=== PATIENT | male | born 1970 | race Caucasian/White ===

== ENCOUNTER 2021-03-27 18:27 | Emergency (ER) | payer OTHER ==
[~2021-03-27] VITALS: Ht 175.3 cm; Wt 72.6 kg
[2021-03-27] MEDS ORDERED: ALPR1TAB7 PO (18:49)
[2021-03-27] MEDS ORDERED: QUET100T PO (18:49)
--- NOTE | 2021-03-27 18:51 | NUR ---
Dr Le at the bedside for MSE.
[2021-03-27 19:06] VITALS: BP 129/80
--- NOTE | 2021-03-27 19:06 | NUR ---
Patient discharged to home in stable condition. Written and verbal after care instructions given. Patient verbalizes understanding of instructions. Stressed follow up or return to ER for worsening s/s. Patient ambulates with steady gait, V/S stable, and left with all personal belongings.
== END 2021-03-27 19:06 | disposition home or self-care (01) ==
LOC: ER 18:30
DX: G47.00 Insomnia, unspecified (principal); F41.9 Anxiety disorder, unspecified; F32.9 Major depressive disorder, single episode, unspecified; Z76.0 Encounter for issue of repeat prescription; Z59.0 Homelessness; R63.5 Abnormal weight gain; Z68.23 Body mass index [BMI] 23.0-23.9, adult
CPT/HCPCS: A4663

== ENCOUNTER 2022-04-22 14:05 | Inpatient (IN) | payer OTHER ==
[~2022-04-22] VITALS: Ht 170.2 cm; Wt 80.7 kg
[~2022-04-22 14:05] MED LIST: ALPR1TAB7 PO; QUET100T PO
[2022-04-22 14:28] LABS: HEMATOCRIT 38.9 % (36.7-47.1); MEAN CORPUSCULAR HEMOGLOBIN 26.4 uug (23.8-33.4); MEAN CORPUSCULAR VOLUME 78.2 fL (73.0-96.2); PLATELET COUNT (AUTO) 247 K/uL (152-348)
[2022-04-22 14:35] LABS: CARBON DIOXIDE 31 mmol/L (21-32); CHLORIDE 102 mmol/L (98-107); CREATININE 1.3 mg/dL (0.6-1.3); GLUCOSE 94 mg/dL (74-106); POTASSIUM 3.5 mmol/L (3.5-5.1); UREA NITROGEN, BLOOD 11 mg/dL (7-18)
--- NOTE | 2022-04-22 17:18 | NUR ---
Patient is resting comfortably on gurney with eyes closed, soft snoring heard. Patient is under police custody, for possible admission for chest pains. 3rd floor staff Bladimir, nursing service and repair supervisor Iesha and ER registration staff Paola notified re: "plan to admit"
[2022-04-22] MEDS ORDERED: ASPIRIN 325 MG TABLET PO ONE (18:00)
[2022-04-22] MEDS ORDERED: ASPIRIN 325 MG TABLET ONE (18:14)
--- NOTE | 2022-04-22 18:42 | NUR ---
Patient is waiting for an available telemetry nurse & bed, under police custody.
--- NOTE | 2022-04-22 19:03 | NUR ---
Patient refusing IV line insertion, Dr Poe notified.
--- NOTE | 2022-04-22 19:15 | NUR ---
Patient finally consented to IV line insertion with extra warm blankets on. Patient is still under police custody, pending available telemetry nurse & bed@this time.
--- NOTE | 2022-04-22 19:16 | NUR ---
SBAR to NADEEM Rios.
--- NOTE | 2022-04-22 19:17 | NUR ---
SBAR REPORT RECEIVED FROM NADEEM DELEON.
[2022-04-22] MEDS ORDERED: NITROGLYCERIN 0.4 MG/TAB BOTTLE SL ONE (22:00)
[2022-04-22] MEDS ORDERED: MAGNESIUM HYDROXIDE 30 ML LIQUID UDC PO PRN (22:00)
[2022-04-22] MEDS ORDERED: REMEDY ESSENTIAL ZINC PASTE 113 GM TP PRN (22:00)
[2022-04-22] MEDS ORDERED: ACETAMINOPHEN 325 MG TABLET PO PRN (22:00)
[2022-04-22] MEDS ORDERED: ONDANSETRON 4 MG/2 ML VIAL IV PRN (22:00)
--- NOTE | 2022-04-22 22:08 | NUR ---
GAVE REPORT TO NADEEM BANDA.
--- NOTE | 2022-04-22 22:30 | NUR ---
Pt arrived accompanied by 2 police officers. No distress noted. Denies SOB or chest pain at this time. Sinus rhythm on the monitor. IV site is intact. Able to make needs known.
--- NOTE | 2022-04-22 22:40 | NUR ---
Pt. admitted to tele , under care of Trey Mccartney Belongs List completed Pt admitted in stable condition, denied any pain/discomfort. No SOB or labored breathing, afebrile.
[2022-04-22 23:00] VITALS: BP 112/77
[2022-04-23 04:33] VITALS: BP 130/84
--- NOTE | 2022-04-23 05:30 | NUR ---
Slept throughout the night. Police officers at bedside. No distress noted. Denies chest pain or SOB. IV site intact. Will endorse to day shift.
[2022-04-23 06:50] LABS: HEMATOCRIT 39.3 % (36.7-47.1); MEAN CORPUSCULAR HEMOGLOBIN 26.4 uug (23.8-33.4); PLATELET COUNT (AUTO) 246 K/uL (152-348)
[2022-04-23] MEDS ORDERED: PANTOPRAZOLE SODIUM 40 MG TABLET.DR PO SCH (07:00)
[2022-04-23 07:04] LABS: CREATININE 1.3 mg/dL (0.6-1.3); MAGNESIUM 1.9 mg/dL (1.8-2.4); POTASSIUM 3.2 mmol/L (3.5-5.1)
--- NOTE | 2022-04-23 07:30 | NUR ---
Alert, oriented x 4. Not in distress. Reports of slight chest pain.. Officer at bedside
[2022-04-23 07:51] VITALS: BP 122/76
[2022-04-23] MEDS ORDERED: ASPIRIN 81 MG TAB.CHEW PO SCH (09:00)
[2022-04-23] MEDS ORDERED: POTASSIUM CHLORIDE 50 ML IV SCH (11:00)
[2022-04-23 11:23] VITALS: BP 128/88
--- NOTE | 2022-04-23 12:48 | NUR ---
Refused IV potassium, will change to PO
[2022-04-23] MEDS ORDERED: POTASSIUM CHLORIDE 20 MEQ TAB.PRT.SR PO ONE (14:00)
[2022-04-23 14:57] VITALS: BP 129/90
[2022-04-23] MEDS ORDERED: ATOR20TA PO (17:07)
[2022-04-23] MEDS ORDERED: ASPI81TA31 PO (17:07)
--- NOTE | 2022-04-23 18:10 | NUR ---
Seen by roto mixer operator cleared for discharge. With discharge order, book to intermediate. Saline lock removed. Tele removed. DC instruction given. Discharged to police officers in fair condition, not in distress.
[2022-04-23 19:06] LABS: *AMPHETAMINE, URINE POSITIVE (NEGATIVE); *CANNABINOID, URINE POSITIVE (NEGATIVE); *COCCAINE, URINE NEGATIVE (NEGATIVE); *OPIATE, URINE NEGATIVE (NEGATIVE); *PHENCYCLIDINE SCREEN,URINE NEGATIVE (NEGATIVE)
[2022-04-23] MEDS ORDERED: ATORVASTATIN 20 MG TABLET PO SCH (21:00)
[2022-04-23] MEDS ORDERED: QUETIAPINE FUMARATE 100 MG TABLET PO SCH (21:00)
== END 2022-04-23 18:10 | DRG 918 ==
LOC: ER 14:05 → TELE3 22:12
PROVIDERS: ADMIT Nurse Practitioner Family; ATTEND Nurse Practitioner Family
DX: T43.621A Poisoning by amphetamines, accidental (unintentional), initial encounter (principal); R07.89 Other chest pain; I25.2 Old myocardial infarction; E78.5 Hyperlipidemia, unspecified; I10 Essential (primary) hypertension; I25.10 Atherosclerotic heart disease of native coronary artery without angina pectoris; Z91.14 Patient's other noncompliance with medication regimen; Z59.00 Homelessness unspecified; Z95.5 Presence of coronary angioplasty implant and graft; Y92.89 Other specified places as the place of occurrence of the external cause; F15.10 Other stimulant abuse, uncomplicated; Z20.822 Contact with and (suspected) exposure to COVID-19
CPT/HCPCS: 36415; 71045; 83735; 84484; 85025; 93005; 93307; A4663; G0378; J3480